=== PATIENT | male | born 1975 | race Caucasian/White ===

== ENCOUNTER 2020-06-10 10:36 | Emergency (ER) | payer SELFPAY ==
[~2020-06-10] VITALS: Ht 162.6 cm; Wt 59.0 kg
[2020-06-10] MEDS ORDERED: TC1U15 TP (10:57)
[2020-06-10 11:10] VITALS: BP 126/81
== END 2020-06-10 11:13 | disposition home or self-care (01) ==
LOC: ER 11:06
DX: R21 Rash and other nonspecific skin eruption (principal); Z98.890 Other specified postprocedural states
CPT/HCPCS: 99283